=== PATIENT | male | born 1970 | race Caucasian/White ===

== ENCOUNTER 2019-09-19 11:30 | Emergency (ER) | payer OTHER, SELFPAY ==
[2019-09-19 11:38] VITALS: BP 131/88; PULSE 92; RESP 16; TEMP 36.6; O2SAT 97
--- NOTE | 2019-09-19 12:24 | ED.EYEPROB ---
HPI - Eye Problem General Chief complaint: Eye Problems Stated complaint: eye irritation Time Seen by Provider: 09/19/19 12:24 Source: patient and RN notes reviewed Mode of arrival: ambulatory Limitations: no limitations History of Present Illness HPI Narrative: 49-year-old male presents with concern for right eye irritation, watery drainage, redness. Reports symptoms started this morning. Reports 2-day history of rhinorrhea, nasal congestion. Denies wearing contact lenses. Denies any injury or foreign body of the eye. Denies eye pain, denies vision changes, denies photophobia chief complaint: eye redness (Eye irritation) Related Data Allergies Allergy/AdvReac Type Severity Reaction Status Date / Time amoxicillin Allergy Unknown lightheadedness, Verified 07/25/17 21:20 dizziness. No Known Allergies Allergy Unverified 10/02/16 20:40 Review of Systems Review of Systems: Narrative: CONSTITUTIONAL: Denies malaise, chills, sweats, or fever. EYES: Denies visual changes, eye pain, photophobia. Reports right eye redness, irritation, watery discharge. ENT: Reports rhinorrhea, congestion. Denies sinus pain, otalgia or sore throat. CARDIOVASCULAR: Denies chest pain, palpitations, or edema. RESPIRATORY: Denies cough or dyspnea. SKIN: Denies rash or itching. NEUROLOGIC: Denies headache. All systems reviewed & are unremarkable except as noted in HPI and below PMFSH Social History Social History Smoking status: Never smoker Alcohol intake: current Comments At time of signature, agree with nursing past medical, surgical, social and family history. There is no relevant family history pertinent to the presenting complaint Exam Narrative: Exam Narrative: GENERAL: Well-appearing, well-nourished, and in no acute distress. HEAD: Normocephalic, atraumatic EYES: PERRLA, left conjunctivae clear, EOMI. Right conjunctive and sclera mildly injected with cloudy discharge ENT: Nares clear, turbinates erythematous, clear discharge. Mucous membranes moist. TM pearly gomez with sharp light reflex bilaterally; no tragal tenderness. Oropharynx not erythematous without lesions. Tonsils not enlarged and without exudate, no drooling, no hoarseness, no trismus. NECK: Supple. No lymphadenopathy CHEST: . No respiratory distress, speaks in full sentences. HEART: Regular rate and rhythm. SKIN: Warm, dry, no rash. NEURO: Alert and oriented x3. PSYCH: Normal mood and affect Course Course Emergency Course: Patient is aware of diagnosis, understands and agrees to treatment plan. Anticipatory guidance given. Patient agrees to follow-up as directed and is aware of reasons to seek care at the emergency department. Portions of this record may have been created with voice recognition software Vital Signs Vital signs: Vital Signs Temperature 97.8 F 09/19/19 11:38 Pulse Rate 92 09/19/19 11:38 Respiratory Rate 16 09/19/19 11:38 Blood Pressure 131/88 09/19/19 11:38 Pulse Oximetry 97 09/19/19 11:38 Temperature 97.8 F 09/19/19 11:38 Pulse Rate 92 09/19/19 11:38 Respiratory Rate 16 09/19/19 11:38 Blood Pressure 131/88 09/19/19 11:38 Pulse Oximetry 97 09/19/19 11:38 Reviewed. Patient has current diagnosis of hypertension MDM - Eye Problem MDM Narrative Medical decision making narrative: Consideration of the following conditions may be warranted for the presenting problem, they are not final diagnoses: Bacterial conjunctivitis, allergic conjunctivitis, viral conjunctivitis, foreign body, blepharitis, chalazion, hordeolum, corneal abrasion. Exam findings show no acute concerns or changes; patient is non-toxic appearing and is in no distress. Patient is appropriate for outpatient treatment and follow-up. Critical Care Time Critical Care Time Critical Care Time: No Discharge Plan Discharge Clinical Impression: Conjunctivitis Qualifiers: Conjunctivitis type: acute Acute conjunctivitis type: unspecified [place]
== END 2019-09-19 12:38 | disposition home or self-care (01) ==
PROVIDERS: Emergency Provider Nurse Practitioner; PCP Family Medicine
DX: H10.31 Unspecified acute conjunctivitis, right eye (principal); Z85.850 Personal history of malignant neoplasm of thyroid
CPT/HCPCS: 99213; G0463

== ENCOUNTER → 2020-12-26 02:05 | Outpatient (CLI) | payer OTHER, SELFPAY ==
[2020-12-26 23:32] LABS: SARS-CoV-2 RNA PCR Negative
== END ==
PROVIDERS: PCP Family Medicine; Visit Provider Internal Medicine Gastroenterology
DX: Z01.812 Encounter for preprocedural laboratory examination (principal); Z20.822 Contact with and (suspected) exposure to COVID-19
CPT/HCPCS: C9803; U0003; U0005

== ENCOUNTER 2020-12-29 01:50 | Day surgery (SDC) | payer OTHER, SELFPAY ==
[2020-12-20 13:46] VITALS: BMI 26.9
[2020-12-29 06:32] VITALS: BP 124/90; PULSE 90; RESP 16; TEMP 36.4; O2SAT 95; BMI 25.5
[2020-12-29] MEDS: LACTATED RINGERS 1,000 ML 150 ML IV CONT (06:47)
--- NOTE | 2020-12-29 07:17 | WPDANESEPPF ---
Anes - Initial Pre Proc Eval Procedure: Operation Date: 12/29/20 07:30 Proposed Procedures p Screening Colonoscopy - Musa Sams MD Date/Time: 12/29/20 07:17 Surgeon: Musa Sams MD Pre Op Diagnosis: Neoplasm Screening, Family Hx Of Colon CA Patient Data Age: 50 Gender: M Height: 6 ft Weight: 85.4 kg Last Vital Signs Temp 97.6 F 12/29/20 06:32 Pulse 90 12/29/20 06:32 Resp 16 12/29/20 06:32 BP 124/90 12/29/20 06:32 Pulse Ox 95 12/29/20 06:32 Allergies Allergy/AdvReac Type Severity Reaction Status Date / Time No Known Allergies Allergy Verified 12/29/20 06:30 Home Medications Medication Instructions Recorded Confirmed Type cholecalciferol (vitamin D3) 50 50 mcg PO DAILY 08/23/20 12/29/20 History mcg (2,000 unit) capsule doxycycline hyclate 20 mg tablet 20 mg PO DAILY tablet 08/23/20 12/20/20 History levothyroxine 175 mcg tablet 175 mcg PO DAILY #90 tablet 08/23/20 12/29/20 Rx montelukast [Singulair] 10 mg PO DAILY 12/20/20 12/29/20 History Patient hx anesthesia problems: none Family hx anesthesia problems: none PMFSH Past Medical History Medical History (Updated 08/23/20 @ 14:22 by Laith Saeed MD) Elevated blood pressure reading Family hx of colon cancer Hypoparathyroidism after procedure Malignant neoplasm of thyroid gland Obesity (BMI 30.0-34.9) Prediabetes Vitamin D imbalance Social History Social History Smoking status: Never smoker Alcohol intake: current Substance use: current Substance use type: does not use Living arrangements: with family Gender identity (if verbalized by the patient): Male Sexual Orientation (if Verbalized by the Patient): Straight or Heterosexual Spiritual care concerns: No Anes - Eval Final PreProcedure Day of Procedure 12/29/20 07:17 Patient weight: normal Heart: regular rate and rhythm Lungs: clear to auscultation Airway: Mallampati scale class II Neurological: alert and oriented Last oral intake: >/= 8 hours ASA classification: II Emergent: no Anesthetic plan: proceed Anesthesia type and monitoring: general GIVS and standard monitoring Informed Consent: The patient's anesthetic plan and its attendant risks and benefits were discussed with the patient/family/POA. Questions were solicited and answers provided to the satisfaction of the patient/family/POA.
--- NOTE | 2020-12-29 07:30 | PM.HPGS ---
History of Present Illness History of Present Illness Consent: Risks, benefits, and alternatives have been discussed and questions answered. Patient agrees to proceed with procedure. Chief complaint: Neoplasm Screening, Family Hx Of Colon CA Narrative: Bert Lucas is a 50 year old male with colon polyps 5 years ago Review of Systems Constitutional: Constitutional: Denies headache(s) and Denies weakness Eyes: Eyes: Denies blurry vision ENT: Reports Normal hearing present, Denies headache(s) and Denies neck pain Cardiovascular: Cardiovascular: Denies chest pain and Denies dyspnea Respiratory: Respiratory: Denies dyspnea Gastrointestinal: Gastrointestinal: Reports no additional gastrointestinal complaints Genitourinary: Genitourinary: Denies dysuria Musculoskeletal: Musculoskeletal: Denies neck pain Integumentary/Breasts: Skin/Breast: Denies dry skin Neurologic: Reports Normal hearing present, Denies headache(s) and Denies weakness Psychiatric: Psychiatric: Denies anxiety Endocrine: Endocrine: Denies change in body appearance Hematologic/Lymphatic: Hematologic/Lymphatic: Denies easy bleeding Allergic/Immunologic: Allergic/Immunologic: Denies urticaria PMFSH Past Medical History Medical History (Updated 12/29/20 @ 07:30 by Musa Sams MD) Colon polyp Elevated blood pressure reading Family hx of colon cancer Hypoparathyroidism after procedure Malignant neoplasm of thyroid gland Obesity (BMI 30.0-34.9) Prediabetes Vitamin D imbalance Social History Social History Smoking status: Never smoker Alcohol intake: current Substance use: current Substance use type: does not use Living arrangements: with family Gender identity (if verbalized by the patient): Male Sexual Orientation (if Verbalized by the Patient): Straight or Heterosexual Spiritual care concerns: No Meds Home Medications and Allergies Home Medications Medication Instructions Recorded Confirmed Type cholecalciferol (vitamin D3) 50 50 mcg PO DAILY 08/23/20 12/29/20 History mcg (2,000 unit) capsule doxycycline hyclate 20 mg tablet 20 mg PO DAILY tablet 08/23/20 12/20/20 History levothyroxine 175 mcg tablet 175 mcg PO DAILY #90 tablet 08/23/20 12/29/20 Rx montelukast [Singulair] 10 mg PO DAILY 12/20/20 12/29/20 History Allergies Allergy/AdvReac Type Severity Reaction Status Date / Time No Known Allergies Allergy Verified 12/29/20 06:30 Vital Signs Vital Signs - 24 hr 12/29/20 06:32 Temperature 97.6 F Pulse Rate 90 Respiratory Rate 16 Blood Pressure 124/90 Pulse Oximetry 95 Exam Const: General: comfortable and no acute distress HENMT: General nose exam: Normal nares present Eyes: General: appearance normal, both eyes and all related structures Neck: Neck: no JVD Resp: Auscultation: clear to auscultation bilaterally Cardio: Rate: regular rate Rhythm: regular rhythm GI: Inspection: non-distended GI Palp: Yes Soft to palpation Skin: General skin exam: normal color Neuro: General: gait normal Speech: normal speech Extrem: General: normal to inspection Psych: Mental Status: mental status grossly normal Assessment and Plan Assessment and plan (1) Family hx of colon cancer: Code(s): Z80.0 - Family history of malignant neoplasm of digestive organs Status: Acute (2) Colon polyp: Code(s): K63.5 - Polyp of colon Status: Acute Assessment and Plan: colonoscopy
[2020-12-29 07:52] VITALS: BP 103/72; PULSE 82; RESP 17; O2SAT 98
[2020-12-29 08:02] VITALS: BP 103/80; PULSE 81; RESP 17; O2SAT 98
[2020-12-29 08:12] VITALS: BP 120/84; PULSE 71; RESP 17; O2SAT 98
== END 2020-12-29 08:25 | disposition home or self-care (01) ==
PROVIDERS: PCP Family Medicine; Visit Provider Internal Medicine Gastroenterology
PROC: 0DJD8ZZ Inspection of Lower Intestinal Tract, Via Natural or Artificial Opening Endoscopic (ICD-10-PCS; CPT 45378; principal; 2020-12-29 07:30)
DX: Z12.11 Encounter for screening for malignant neoplasm of colon (principal); Z86.010 Personal history of colon polyps; K57.30 Diverticulosis of large intestine without perforation or abscess without bleeding; K64.8 Other hemorrhoids; Z85.850 Personal history of malignant neoplasm of thyroid; E89.0 Postprocedural hypothyroidism; R73.03 Prediabetes
CPT/HCPCS: 45378; C9803; J7120; U0003; U0005

== ENCOUNTER → 2021-03-17 01:04 | Outpatient (CLI) | payer OTHER, SELFPAY ==
[2021-03-17 22:45] LABS: SARS-CoV-2 RNA PCR Negative
== END ==
PROVIDERS: PCP Family Medicine; Visit Provider Physician Assistant Medical
DX: Z20.822 Contact with and (suspected) exposure to COVID-19 (principal)
CPT/HCPCS: C9803; U0003; U0005

== ENCOUNTER → 2022-02-01 07:40 | Outpatient (CLI) | payer OTHER, SELFPAY ==
--- NOTE | ~2022-02-01 | XR_ITS ---
EXAMINATION: XR hand LT min 3V DATE: 02/01/2022 08:07 INDICATION: Benign neoplasm of bone and articular cartilage. Chronic soft tissue lump with intermitte nt pain at the dorsal aspect of the carpus. TECHNIQUE: Posteroanterior, oblique and lateral views of the left hand were obtained. A BB dorsey the lesion of concern on the lateral projection. COMPARISON: 10/02/2016 FINDINGS: Prominent carpal bossing with large dorsal osteophytes at the third carpometacarpal joint which are l ikely underlies the marker indicating the lesion of concern. Bone alignment is normal. No fracture. J oint spaces are relatively preserved. Small cortical ossicle near the tip of the ulnar styloid proces s could be either degenerative or sequela of old trauma. IMPRESSION: 1. Carpal bossing with prominent dorsal osteophytes at the third carpometacarpal joint which likely a ccount for the palpable abnormality of concern. Reviewed, dictated and finalized at location B. IMPRESSION: 1. Carpal bossing with prominent dorsal osteophytes at the third carpometacarpa l joint which likely account for the palpable abnormality of concern.
== END ==
PROVIDERS: PCP Family Medicine; Visit Provider Family Medicine
DX: D16.9 Benign neoplasm of bone and articular cartilage, unspecified (principal)
CPT/HCPCS: 73130

== ENCOUNTER 2022-09-16 13:05 | Emergency (ER) | payer OTHER, SELFPAY ==
[2022-09-16 13:27] VITALS: BP 132/83; PULSE 95; RESP 16; TEMP 36.4; O2SAT 99
--- NOTE | 2022-09-16 13:34 | ED.URI ---
HPI - URI/Sore Throat General Chief Complaint: Upper Respiratory Infection Stated Complaint: fever, congestion Time Seen by Provider: 09/16/22 13:49 Source: patient and RN notes reviewed Mode of arrival: ambulatory Limitations: no limitations History of Present Illness HPI Narrative: 52-year-old male presents concern for cough, chest congestion. Reports symptoms started on night and Friday with fever, nasal congestion, rhinorrhea and in progressed into a cough he took 2- COVID test at home. MD elicited complaint: cough Related Data Home Medications Medication Instructions Recorded Confirmed cholecalciferol (vitamin D3) 50 50 mcg PO DAILY 08/23/20 08/13/22 mcg (2,000 unit) capsule calcium carbonate 300 mg (750 mg) 300 mg PO BID 05/04/21 08/13/22 chewable tablet (Antacid Extra Strength (calcium carb)) levothyroxine 200 mcg tablet 200 mcg PO DAILY 08/13/22 08/13/22 (Synthroid) Allergies Allergy/AdvReac Type Severity Reaction Status Date / Time No Known Allergies Allergy Verified 09/16/22 13:29 Review of Systems Review of Systems: CONSTITUTIONAL: Denies malaise, chills, sweats. Reports fever. EYES: Denies visual changes, redness, or discharge. ENT: Reports rhinorrhea, congestion. Denies sinus pain, otalgia and sore throat. CARDIOVASCULAR: Denies chest pain, palpitations, or edema. RESPIRATORY: Reports cough. Denies dyspnea. GASTROINTESTINAL: Denies abdominal pain, nausea, vomiting, diarrhea SKIN: Denies rash or itching. MUSCULOSKELETAL: Denies myalgia. NEUROLOGIC: Denies headache. 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 Malignant neoplasm of thyroid gland Obesity (BMI 30.0-34.9) Prediabetes Vitamin D imbalance Social History Social History (Updated 08/13/22 @ 15:52 by Adrian Pimentel MA) Smoking status: Never smoker Alcohol intake: current Substance use: current Substance use type: does not use Lack of Transportation: No Lack of Food: Never True Concerned About Future Housing: No Difficulty Paying Gas/Electric Bills: No Difficulty Paying for Meds: No Currently Unemployed: No Education: Master's Degree or Higher Difficulty w/ Childcare or Family Care: No Living arrangements: with family Gender identity (if verbalized by the patient): Male Sexual Orientation (if Verbalized by the Patient): Straight or Heterosexual Spiritual care concerns: No Comments At time of signature, agree with nursing past medical, surgical, social and family history. There is no relevant family history pertinent to the presenting complaint Exam Narrative: GENERAL: Well-appearing, well-nourished, and in no acute distress. HEAD: Normocephalic EYES: PERRLA, conjunctivae clear ENT: Nares clear, turbinates edematous and erythematous, clear discharge. Mucous membranes moist. TM pearly gomez with dull light reflex bilaterally; no tragal tenderness. Oropharynx not erythematous without lesions. Tonsils not enlarged and without exudate, no drooling, no hoarseness, no trismus, uvula midline. NECK: Supple. No lymphadenopathy CHEST: Clear to auscultation, breath sounds equal. No wheezing, rhonchi, rales, or stridor. No respiratory distress, speaks in full sentences. Cough noted HEART: Regular rate and rhythm. No murmur heard. SKIN: Warm, dry, no rash. NEURO: Alert and oriented x3. PSYCH: Normal mood and affect Course Course Emergency Course: Patient is aware of diagnosis, understands and agrees to treatment plan. Anticipatory guidance given. Patient agrees to follow-up as directed and is aware of reasons to seek care at the emergency department. Portions of this record may have been created with voice recognition software Level of Care: Express Car
== END 2022-09-16 14:02 | disposition home or self-care (01) ==
PROVIDERS: Emergency Provider Nurse Practitioner; PCP Family Medicine
DX: J40 Bronchitis, not specified as acute or chronic (principal); Z85.850 Personal history of malignant neoplasm of thyroid
CPT/HCPCS: 99213; G0463

== ENCOUNTER 2023-09-01 11:13 | Emergency (ER) | payer OTHER, SELFPAY ==
[2023-09-01 11:22] VITALS: BP 146/99; PULSE 89; RESP 20; TEMP 36.6; O2SAT 98
[2023-09-01 11:28] VITALS: BP 146/99; PULSE 89; RESP 20; TEMP 36.6; O2SAT 98
--- NOTE | 2023-09-01 11:47 | ED.URI ---
HPI - URI/Sore Throat General Chief Complaint: Upper Respiratory Infection Stated Complaint: Congestion;Cough Time Seen by Provider: 09/01/23 11:30 Source: patient Mode of arrival: ambulatory Limitations: no limitations History of Present Illness HPI Narrative: Bert is a 52 year old male patient presenting to the clinic today with complaints of cough and congestion x5 days. He denies any known fever. Did at home COVID test and it was negative at home. Denies any chest pain or shortness of breath. No known exposure to anyone with COVID, flu, or strep. MD elicited complaint: cough, rhinorrhea and nasal congestion Related Data Home Medications Medication Instructions Recorded Confirmed cholecalciferol (vitamin D3) 50 50 mcg PO DAILY 08/23/20 09/01/23 mcg (2,000 unit) capsule calcium carbonate 300 mg (750 mg) 300 mg PO BID 05/04/21 09/01/23 chewable tablet (Antacid Extra Strength (calcium carb)) levothyroxine 200 mcg tablet 200 mcg PO DAILY 08/13/22 09/01/23 (Synthroid) Allergies Allergy/AdvReac Type Severity Reaction Status Date / Time No Known Allergies Allergy Verified 09/01/23 11:27 Review of Systems Review of Systems: Pertinent positives per HPI. Patient denies any fever, chills, rash, headache, visual changes, dizziness, shortness of breath, chest pain, palpitations, nausea, vomiting, diarrhea, constipation, abdominal pain, or any urinary issues. 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 Malignant neoplasm of thyroid gland Obesity (BMI 30.0-34.9) Prediabetes Vitamin D imbalance Social History Social History Smoking status: Never smoker Alcohol intake: current Substance use: current Substance use type: does not use Lack of Transportation: No Lack of Food: Never True Concerned About Future Housing: No Difficulty Paying Gas/Electric Bills: No Difficulty Paying for Meds: No Currently Unemployed: No Education: Master's Degree or Higher Difficulty w/ Childcare or Family Care: No Living arrangements: with family Gender identity (if verbalized by the patient): Male Sexual Orientation (if Verbalized by the Patient): Straight or Heterosexual Spiritual care concerns: No Comments At the time of my signature, I reviewed and agree with the nursing past medical, surgical, social, and family history. There is no relevant family history pertinent to the patient complaint. Exam Narrative: General: Well-developed, well nourished, in no apparent distress Head: Normocephalic, atraumatic Eyes: Pupils equally round and reactive to light bilaterally, EOM intact, sclera and conjunctive clear, no discharge, lids normal Ears: TMs intact and congested, ear canals clear, no drainage, grossly hearing normal. Nose: Nares patent, clear nasal discharge, no inflammation, no sinus tenderness. Mouth: Oral pharynx without lesions or masses, good dentition, MMM. Neck: Supple, trachea midline, no enlargement of anterior or posterior cervical nodes, no thyroid masses or goiter palpable. Cardio: Regular rate and rhythm, s1 and s2 normal, no murmur appreciated. Resp: Clear to auscultation bilaterally, no rhonchi, rales, wheezing or rubs Course Course Emergency Course: Portions of this record may have been created with voice recognition software. Level of Care: Express Care Visit Vital Signs Vital signs: Vital Signs Temperature 36.6 C 09/01/23 11:22 Pulse Rate 89 09/01/23 11:22 Respiratory Rate 20 09/01/23 11:22 Blood Pressure 146/99 H 09/01/23 11:22 Pulse Oximetry 98 09/01/23 11:22 Oxygen Delivery Room Air 09/01/23 11:22 Temperature 36.6 C 09/01/23 11:28 Pulse Rate 89 09/01/23 11:28 Respiratory Rate 20 09/01/23
== END 2023-09-01 12:07 | disposition home or self-care (01) ==
PROVIDERS: Emergency Provider Nurse Practitioner Family; PCP Family Medicine
DX: J06.9 Acute upper respiratory infection, unspecified (principal); Z85.850 Personal history of malignant neoplasm of thyroid
CPT/HCPCS: 99211; G0463

== ENCOUNTER 2023-11-23 18:41 | Emergency (ER) | payer OTHER, SELFPAY ==
--- NOTE | 2023-11-23 18:53 | ED.EYEPROB ---
HPI - Eye Problem General Chief complaint: Eye Problems Stated complaint: R EYE INJURY Time Seen by Provider: 11/23/23 18:58 Source: patient and RN notes reviewed Mode of arrival: ambulatory Limitations: no limitations History of Present Illness HPI Narrative: 53-year-old male presents with concern for redness and irritation to the playing pickle ball today. He reports occasional blurry vision. He reports symptoms have improved slightly since he injured the eye. MD chief complaint: eye redness Related Data Home Medications Medication Instructions Recorded Confirmed cholecalciferol (vitamin D3) 50 50 mcg PO DAILY 08/23/20 11/23/23 mcg (2,000 unit) capsule calcium carbonate (Antacid Ext Str 300 mg PO BID 05/04/21 11/23/23 (calcium carb)) levothyroxine 200 mcg tablet 200 mcg PO DAILY 08/13/22 11/23/23 (Synthroid) Allergies Allergy/AdvReac Type Severity Reaction Status Date / Time No Known Allergies Allergy Verified 11/23/23 18:48 Review of Systems Review of Systems: CONSTITUTIONAL: Denies malaise, chills, sweats, or fever. EYES: Reports intermittent blurry vision. Reports right eye redness, irritation ENT: Denies rhinorrhea, congestion, sinus pain, otalgia or sore throat. SKIN: Denies rash or itching. NEUROLOGIC: Denies numbness, weakness, or headache. PSYCHIATRIC: Denies anxiety or depression. 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 Malignant neoplasm of thyroid gland Obesity (BMI 30.0-34.9) Prediabetes Vitamin D imbalance Social History Social History Smoking status: Never smoker Alcohol intake: current Substance use: current Substance use type: does not use Lack of Transportation: No Lack of Food: Never True Concerned About Future Housing: No Difficulty Paying Gas/Electric Bills: No Difficulty Paying for Meds: No Currently Unemployed: No Education: Master's Degree or Higher Difficulty w/ Childcare or Family Care: No Living arrangements: with family Gender identity (if verbalized by the patient): Male Sexual Orientation (if Verbalized by the Patient): Straight or Heterosexual Spiritual care concerns: No Comments At time of signature, agree with nursing past medical, surgical, social and family history. There is no relevant family history pertinent to the presenting complaint Exam Narrative: GENERAL: Well-appearing, well-nourished, and in no acute distress. HEAD: Normocephalic, atraumatic. EYES: PERRLA, sclera clear, and EOMI. No nystagmus. Right sclera injected with corneal abrasion noted upon Wood's lamp exam, see note. Upper and lower eyelid unremarkable, no periorbital edema noted ENT: Nares clear, turbinates pink, no rhinorrhea or epistaxis. Mucous membranes moist. TM pearly gomez with sharp light reflex bilaterally; no tragal tenderness. NECK: Supple. CHEST: No respiratory distress. Speaks in full sentences. HEART: Regular rate and rhythm. SKIN: Warm, dry, no visible rash. NEURO: Alert and oriented x3. PSYCH: Normal mood and affect Course Course Emergency Course: Patient is aware of diagnosis, understands and agrees to treatment plan. Anticipatory guidance given. Patient agrees to follow-up as directed and is aware of reasons to seek care at the emergency department. Portions of this record may have been created with voice recognition software Level of Care: Express Care Visit Vital Signs Vital signs: Reviewed. Procedures Other Procedure Procedure 1: Other Procedure: Tetracaine 1 gtt instilled in right eye, fluorescein stain applied. Corneal abrasion noted upon light lamp exam at approximately 9 o'clock in relation to the pupil.
[2023-11-23 18:55] VITALS: BP 185/111; PULSE 89; RESP 16; TEMP 36.5; O2SAT 99
== END 2023-11-23 19:12 | disposition home or self-care (01) ==
PROVIDERS: Emergency Provider Nurse Practitioner; PCP Family Medicine
DX: S05.01XA Injury of conjunctiva and corneal abrasion without foreign body, right eye, initial encounter (principal); X58.XXXA Exposure to other specified factors, initial encounter; Y93.69 Activity, other involving other sports and athletics played as a team or group; R73.03 Prediabetes; E66.9 Obesity, unspecified; Z68.27 Body mass index [BMI] 27.0-27.9, adult; Z85.850 Personal history of malignant neoplasm of thyroid
CPT/HCPCS: 99213; A9270; G0463

== ENCOUNTER 2023-12-25 19:10 | Emergency (ER) | payer OTHER, SELFPAY ==
[2023-12-25 19:27] VITALS: BP 175/113; PULSE 84; RESP 16; TEMP 36.8; O2SAT 100
--- NOTE | 2023-12-25 19:38 | ED.GENADULT ---
HPI - General Adult General Chief complaint: Upper Respiratory Infection Stated complaint: SWOLLEN LIP Time Seen by Provider: 12/25/23 19:39 Source: patient, RN notes reviewed and old records reviewed Mode of arrival: ambulatory Limitations: no limitations History of Present Illness HPI narrative: 53-year-old male presents to the [facility] with a swollen lip. States that he was sitting on his back porch when his lip ?just swelled . Denies any new foods. Not on lisinopril. Unsure if a ?sweat be stung me. ? No treatment prior to arrival Onset (ago): minute(s) Related Data Home Medications Medication Instructions Recorded Confirmed cholecalciferol (vitamin D3) 50 50 mcg PO DAILY 08/23/20 12/25/23 mcg (2,000 unit) capsule calcium carbonate (Antacid Ext Str 300 mg PO BID 05/04/21 12/25/23 (calcium carb)) levothyroxine 200 mcg tablet 200 mcg PO DAILY 08/13/22 12/25/23 (Synthroid) Allergies Allergy/AdvReac Type Severity Reaction Status Date / Time No Known Allergies Allergy Verified 12/25/23 19:22 Review of Systems Review of Systems: All systems reviewed & are unremarkable except as noted in HPI and below Constitutional: Constitutional: Reports no additional constitutional complaints Eyes: Eyes: Reports no additional eye complaints ENT: Reports as per HPI and Reports lip swelling Cardiovascular: Cardiovascular: Reports no additional cardiovascular complaints, Denies chest pain and Denies dyspnea Respiratory: Respiratory: Reports no additional respiratory complaints, Denies chest congestion, Denies cough and Denies dyspnea Gastrointestinal: Gastrointestinal: Reports no additional gastrointestinal complaints, Denies abdominal pain, Denies nausea and Denies vomiting Musculoskeletal: Musculoskeletal: Reports no additional musculoskeletal complaints Integumentary/Breasts: Skin/Breast: Reports system reviewed and no additional complaints, except as docu Neurologic: Reports system reviewed and no additional complaints, except as documented Psychiatric: Psychiatric: Reports no additional psychiatric complaints Allergic/Immunologic: Allergic/Immunologic: Reports no additional allergic/immunologic complaints PMFSH Past Medical History Medical History Colon polyp Elevated blood pressure reading Family hx of colon cancer Hypoparathyroidism after procedure Malignant neoplasm of thyroid gland Obesity (BMI 30.0-34.9) Prediabetes Vitamin D imbalance Social History Social History Smoking status: Never smoker Alcohol intake: current Substance use: current Substance use type: does not use Lack of Transportation: No Lack of Food: Never True Concerned About Future Housing: No Difficulty Paying Gas/Electric Bills: No Difficulty Paying for Meds: No Currently Unemployed: No Education: Master's Degree or Higher Difficulty w/ Childcare or Family Care: No Living arrangements: with family Gender identity (if verbalized by the patient): Male Sexual Orientation (if Verbalized by the Patient): Straight or Heterosexual Spiritual care concerns: No Comments At the time of my signature, I reviewed and agree with the nursing past medical, surgical, social, and family history. There is no relevant family history pertinent to the patient complaint. Exam Const: General: cooperative, healthy appearing, comfortable, no acute distress, well developed, alert and well nourished Nutritional Appearance: well nourished Orientation/consciousness: patient oriented x3 Limitations: no limitations HENMT: Head: normal to inspection Ears: hearing grossly normal bilaterally, external ears normal, TM's normal bilaterally, EAC's normal, mastoids normal and no periauricular adenopathy Face/Nose/Sinus: Normal external nose present, Normal nares present, Normal nasal mucous membranes and turbinates prese
[2023-12-25] MEDS: predniSONE 20 MG TABLET 40 MG PO (19:51)
== END 2023-12-25 20:05 | disposition home or self-care (01) ==
PROVIDERS: Emergency Provider Nurse Practitioner; PCP Family Medicine
DX: R22.0 Localized swelling, mass and lump, head (principal); E89.2 Postprocedural hypoparathyroidism; E66.9 Obesity, unspecified; Z68.27 Body mass index [BMI] 27.0-27.9, adult; R73.03 Prediabetes; Z85.850 Personal history of malignant neoplasm of thyroid
CPT/HCPCS: 99213; G0463; J7512

== ENCOUNTER 2024-01-12 08:56 | Emergency (ER) | payer OTHER, SELFPAY ==
[2024-01-12 09:00] VITALS: BP 169/112; PULSE 77; RESP 18; TEMP 36.5; O2SAT 99
--- NOTE | 2024-01-12 09:26 | ED.EYEPROB ---
HPI - Eye Problem General Chief complaint: Eye Problems Stated complaint: R EYE BURNING Source: patient, RN notes reviewed and old records reviewed Mode of arrival: ambulatory Limitations: no limitations History of Present Illness HPI Narrative: Patient presents with complaints of itching and drainage from right eye, moving into the left eye. He reports that symptoms began yesterday. He denies any injury, foreign body. He does state that the right eye was matted shut this morning. 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 Related Data Home Medications Medication Instructions Recorded Confirmed cholecalciferol (vitamin D3) 50 50 mcg PO DAILY 08/23/20 01/12/24 mcg (2,000 unit) capsule calcium carbonate (Antacid Ext Str 300 mg PO BID 05/04/21 01/12/24 (calcium carb)) levothyroxine 200 mcg tablet 200 mcg PO DAILY 08/13/22 01/12/24 (Synthroid) Allergies Allergy/AdvReac Type Severity Reaction Status Date / Time No Known Allergies Allergy Verified 01/12/24 09:04 Review of Systems Review of Systems: All systems reviewed & are unremarkable except as noted in HPI and below Constitutional: Constitutional: Reports no additional constitutional complaints Eyes: Eyes: Denies change in vision, Reports irritation, Reports itchy eyes and Denies photophobia ENT: Reports system reviewed and no additional complaints, except as documented Cardiovascular: Cardiovascular: Reports no additional cardiovascular complaints Respiratory: Respiratory: Reports no additional respiratory complaints Gastrointestinal: Gastrointestinal: Reports no additional gastrointestinal complaints [facility] Past Medical History Medical History Colon polyp Elevated blood pressure reading Family hx of colon cancer Hypoparathyroidism after procedure Malignant neoplasm of thyroid gland Obesity (BMI 30.0-34.9) Prediabetes Vitamin D imbalance Social History Social History Smoking status: Never smoker Alcohol intake: current Substance use: current Substance use type: does not use Lack of Transportation: No Lack of Food: Never True Concerned About Future Housing: No Difficulty Paying Gas/Electric Bills: No Difficulty Paying for Meds: No Currently Unemployed: No Education: Master's Degree or Higher Difficulty w/ Childcare or Family Care: No Living arrangements: with family Gender identity (if verbalized by the patient): Male Sexual Orientation (if Verbalized by the Patient): Straight or Heterosexual Spiritual care concerns: No Comments At the time of my signature, I reviewed and agree with the nursing past medical, surgical, social, and family history. There is no relevant family history pertinent to the patient complaint. Exam Const: General: cooperative, no acute distress, alert and awake Orientation/consciousness: oriented to person, oriented to place and oriented to time HENMT: Head: normal to inspection Eyes: Conjunctivae: conjunctival abnormality right conjunctival injection diffuse and discharge mucoid Sclera: scleral abnormality right scleral injection; without foreign bodies and left scleral injection lateral; without foreign bodies Resp: Effort & Inspection: normal respiratory effort and able to speak in complete sentences Auscultation: clear to auscultation bilaterally, no crackles, no rales, no rhonchi and no wheezes Cardio: Palpation: normal PMI Rate: regular rate Rhythm: regular rhythm Heart sounds: S1 normal heart sound present and S2 normal heart sound present Neuro: General: oriented to person, oriented to place and oriented to time Cranial nerves: Yes CN's II-XII intact bilaterally Psych: Appearance: grossly normal Thought process: Normal thought process present Insight: Good insight present (Psych) Judgement: Good judg
== END 2024-01-12 09:44 | disposition home or self-care (01) ==
PROVIDERS: Emergency Provider Nurse Practitioner Family; PCP Family Medicine
DX: H10.33 Unspecified acute conjunctivitis, bilateral (principal); E66.9 Obesity, unspecified; R73.03 Prediabetes; E89.2 Postprocedural hypoparathyroidism; Z85.850 Personal history of malignant neoplasm of thyroid
CPT/HCPCS: 99213; G0463

== ENCOUNTER 2024-02-18 11:06 | Outpatient (CLI) | payer OTHER, SELFPAY ==
[2024-02-18 13:28] LABS: Parathyroid Intact 41.5 pg/mL (7.5-53.5)
[2024-02-18 13:36] LABS: Alanine Aminotransferase 22 U/L (6-50); Albumin Level 4.4 g/dL (3.5-5.1); Alkaline Phosphatase 70 U/L (38-126); Anion Gap 9 mmol/L (4-12); Aspartate Amino Transferase 37 U/L (17-59); Bilirubin,Total 0.8 mg/dL (0.2-1.3); Blood Urea Nitrogen 21 mg/dL (9-20); Calcium 7.3 mg/dL (8.4-10.2); Carbon Dioxide 30 mmol/L (22-30); Chloride 101 mmol/L (98-107); Cholesterol 197 mg/dL (0-200); Estimated Glomerular Filt Rate > 60; Glucose 116 mg/dL (65-110); HDL Direct 32 mg/dL; Potassium 4.1 mmol/L (3.4-5.0); Sodium 140 mmol/L (137-145); Triglycerides 187 mg/dL (<150)
[2024-02-18 13:44] LABS: Hemoglobin A1C 6.5 % (<5.7)
[2024-02-18 13:58] LABS: LDL Cholesterol Direct 102 mg/dL
[2024-02-18 14:38] LABS: Vitamin D 25 Hydroxy 48.7 ng/mL
== END 2024-02-18 11:07 | disposition home or self-care (01) ==
LOC: ANHGOSHLAB 11:08
PROVIDERS: PCP Family Medicine; Visit Provider Family Medicine
DX: E78.5 Hyperlipidemia, unspecified (principal); C73 Malignant neoplasm of thyroid gland; E83.51 Hypocalcemia; R73.03 Prediabetes; E89.2 Postprocedural hypoparathyroidism
CPT/HCPCS: 36415; 80053; 80061; 82306; 83036; 83970; 84443

== ENCOUNTER 2024-08-26 15:36 | Outpatient (CLI) | payer OTHER, SELFPAY ==
--- OUTSIDE RECORDS SUMMARY | 2024-08-26 15:40 | XMS_ITS | Encounter Summary ---
Author Organization [facility] Address [address] [place] [address] Phone Care Team Providers Care Food Service Director Name Role Phone Laith Saeed MD Primary Care Provider [phone] Encounter Details Date Type Department Care Team (Late st Contact Info) Description 08/23/2024 Telephone [facility] Cardiology [address] [facility] [place] [facility] 8th [place] [address] [place] [address] Laury Meier Social History Tobacco Use Types Packs/Day Years Used Date Smoking Tobacco: Never Smokeless Tobacco: Never Sex and Gender Information Value Date Recorded Sex Assigned at Not on file Legal Sex 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 [x] [] If 'Yes', Schedulefirst available with Cardio-Oncology If yes where were you treated? [address] [facility] Have you ever seen a Trial Examiner in an office setting? [] [x] IF SCHEDULING PATIENT WITH MATERNAL Have you had a baby in the last year or are you ? (If yes send to Dr. Camp for review) [] [] Have you had heart or blood pressure problems during a previous ? (If yes send to Dr. Camp for review) [] [] Dr. Hilaria Garcia Patients only: Are you a hemodialysis or peritoneal dialysis patient? (If yes then patient must be referred from another MD, DO NOT SCHEDULE) [] [] Do you regularly exercise, or play any competitive or recreational sports? (If yes proceed to next question) [x] [] Are your symptoms or concerns associated with this exercise or activity? (If yes schedule in [facility]) [] [x] Patient History Questions Yes No Where/When/Notes Have you EVER been hospitalized for ANY cardiac issue? [] [x] Have you ever had any cardiac testing, imaging, or procedures? (Testing - echo, EKG, stress) (Imaging - Cardiac MRI, CT or calcium scoring) (Procedure - Ablation, Cardioversion, CABG, Cath) [] [x] Have you ever had a sleep study? [] [x] Do you have a device? If yes what type? (Pacemaker, Defibrillator, Implanted Loop Recorder) [] [x] If yes, where and when was device put in? Mail Room? ([employer], [employer], [place]) Appointment Date: 09/29/24 Provider: Nanci Location: [facility] [x] Confirm appt date, time, provider and location. [x] Advise pt to arrive 15- 20 min early. [x] Advise patient to bring medications/list, photo ID and insurance card [x] Advise of New PatientPacket being mailed to them. EKEEPER HEAD documented in this encounter Plan of Treatment Not on file documented as of this encounter Visit Diagnoses Not on filedocumented in this encounter Care Teams Food Service Director Relationship Specialty Start Date End Date Laith Saeed MD PCP - General 09/26/20 documented as of this encounter
--- OUTSIDE RECORDS SUMMARY | 2024-08-26 15:41 | XMS_ITS | Encounter Summary ---
Author Organization [facility] Address [address] [place] [address] Phone Care Team Providers Care Rice Farmworker Name Role Phone Laith Saeed MD Primary Care Provider [phone] Encounter Details Date Type Department Care Team (Late st Contact Info) Description 08/25/2024 Orders Only [facility] Endocrinology Metabolism and Lipid [address] [facility] 5[address] [place] [address] [place] [address] Aashish Bowden, RN Papillary carcinoma of thyroid (HCC) (Primary Dx); Hypothyroidism, adult Social History Tobacco Use Types Packs/Day Years Used Date Smoking Tobacco: Never Smokeless Tobacco: Never Sex and Gender Information Value Date Recorded Sex Assigned at Not on file Legal Sex Male 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 Gender Identity Male 09/08/2018 3:13 PM WEB MARKETING STRATEGIST Sexual Orientation Not on file documented as of this encounter Plan of Treatment Scheduled Orders Name Type Priority Associated Diagnoses Orde r Schedule Comprehensive metabolic panel Lab Routine Papillary carcinoma of thyroid (CMS/HCC) (HCC) Hypothyroidism, adult Expected: 08/25/2024 (Approximate), Expires: 08/25/2025 CBC with auto differential Lab Routine Papillary carcinoma of thyroid (CMS/HCC) (HCC) Hypothyroidism, adult Expected: 08/25/2024 (Approximate), Expires: 08/25/2025 TSH Lab Routine Papillary carcinoma of thyroid (CMS/HCC) (HCC) Hypothyroidism, adult Expected: 08/25/2024 (Approximate), Expires: 08/25/2025 T4, free Lab Routine Papillary carcinoma of thyroid (CMS/HCC) (HCC) Hypothyroidism, adult Expected: 08/25/2024 (Approximate), Expires: 08/25/2025 Renin activity Lab Routine Papillary carcinoma of thyroid (CMS/HCC) (HCC) Hypothyroidism, adult Expected: 08/25/2024 (Approximate), Expires: 08/25/2025 Aldosterone Lab Routine Papillary carcinoma of thyroid (CMS/HCC) (HCC) Hypothyroidism, adult Expected: 08/25/2024 (Approximate), Expires: 08/25/2025 Thyroglobulin, Thyroglobulin Antibodies Lab Routine Papillary carcinoma of thyroid (CMS/HCC) (HCC) Hypothyroidism, adult Expected: 08/25/2024 (Approximate), Expires: 08/25/2025 documented as of this encounter Visit Diagnoses Diagnosis Papillary carcinoma of thyroid (HCC)- Primary Malignant neoplasm of thyroid gland Hypothyroidism, adult Other specified acquired hypothyroidism documented in this encounter Care Teams Rice Farmworker Relationship Specialty Start Date End Date Laith Saeed MD PCP - General 09/26/20 documented as of this encounter
--- OUTSIDE RECORDS SUMMARY | 2024-08-26 15:41 | XMS_ITS | Referral Summary ---
Author Organization [facility] Address [address] [place] [address] Care Team Providers Care Knitted Cloth Examiner Name Role Phone Laith Saeed MD Primary Care Provider [phone] Encounters Date Type Department Care Team Description 08/25/2024 Orders Only [facility] Endocrinology Metabolism and Lipid [address] [facility] 5th [place] [address] [place] [phone] Aashish Bowden RN Papillary carcinoma of thyroid (HCC) (Primary Dx); Hypothyroidism, adult 08/23/2024 Telephone [facility] Cardiology [address] [facility] 8th [place] [address] [place] [phone] Laury Meier 06/28/2024 8:30 AM STRUCTURAL IRONWORKER Office Visit [facility] Ophthalmology [address] [place] [address] Luca Quisep MD Laxity of eyelid (Primary Dx); Papillary conjunctivitis from Last 3 Months Allergies No known active allergies Medications calcium phosphate-vitamin D3 250 mg calcium- 500 unit tablet,chewable TAKE 2 TABLETs TWICE DAILY. 02/14/20 14 Active multivitamin tabletIndications:Vit schrader Deficiency Prevention daily. 09/15/19 08 Active montelukast (SINGULAIR) 10 mg tablet TAKE ONE TABLET BY MOUTH DAILY 03/23/20 10 Active benzonatate (TESSALON) 200 mg capsuleIndications:Up per respiratory infection, viral Take 1 capsule (200 mg total) by mouth 3 (three) times a day as needed for cough 30 capsule 06/30/20 21 Active Additional Information Patient not taking.Reported on 06/28/2024 metFORMIN XR (GLUCOPHAGE XR) 500 mg 24 hr tablet 09/10/19 23 Active calcitRIOL (ROCALTROL) 0.25 mcg capsuleIndications:Ot her hypoparathyroidism (HCC) TAKE 1 CAPSULE DAILY 90 capsule 3 12/19/19 24 Active levothyroxine (SYNTHROID) 200 mcg tabletIndications:Pap illary carcinoma of thyroid (HCC),Hypothyroidism, adult TAKE 1 TABLET DAILY (NEED TO MAKE APPOINTMENT FOR ADDITIONAL REFILLS) 90 tablet 3 02/04/20 24 Active lisinopriL (PRINIVIL,ZESTRIL) 10 mg tablet Take 1 tablet (10 mg total) by mouth daily 02/24/20 24 Active cetirizine (ZyrTEC) 10 mg tablet Take 1 tablet (10 mg total) by mouth daily Active mometasone (NASONEX) 50 mcg/actuation nasal sprayIndications:Nikko rgic Rhinitis Administer 1 spray into each nostril daily Active sodium chloride (OCEAN) 0.65 % nasal sprayIndications:Dry Nose,Nasal Congestion Administer 1 spray into each nostril as needed for rhinitis Active prednisoLONE acetate (PRED FORTE) 1 % ophthalmic suspensionIndications :Papillary conjunctivitis Administer 1 drop into the right eye 3 (three) times a day 5 mL 04/22/20 24 Active Additional Information Patient taking differently:1 drop right eye 3 times daily,Using as needed, Reported on 06/28/2024 Active Problems Problem Noted Date Diagnosed Date Papillary conjunctivitis 04/22/2024 Assessment & Plan (04/22/2024 3:29 PM CDT): Significant improvement since yesterday (pt bring pictures). For now will add Pred TID right eye (OD), but asymmetric papillary rxn and recurrent inflammation right eye (OD) > left eye (OS) atypical. Suspect possible allergic response intermittently. Pt will look into laundry detergent as possible factor. Will schedule interval f/u w oculoplastics. Asked pt to bring in previous photos of inflammation. Could consider CT scan if swelling recurs. Pseudophakia of both eyes 04/05/2024 Assessment & Plan (04/22/2024 3:29 PM CDT): Central, monitor Assessment & Plan (04/05/2024 11:48 AM CDT): +[facility]FI[facility] at [facility] vision -not fully assessed; excellent unaided acuities today -follow Laxity of eyelid 04/05/2024 Assessment & Plan (04/22/2024 3:29 PM CDT): Pt plans to discuss w PCP regarding sleep study. Pred TID right eye (OD) x 2 wk for now for papillary rxn Assessment & Plan (04/05/2024 11:48 AM CDT): -new pt same day add on for redness, burning, itching, watering OD x years -symptoms flare up and resolve on their own -no h/o facial rosacea or PARUL +snores +sleeps with ceiling fan +moderately lax lids today OU with papillary rxn on superior palp conj -recommend sleep study; will send letter to PCP today -rx prednisolone gtts qid OD x 2 weeks; side effects of parts counterman topical steroid use discussed today -start sleeping with eye mask -consider d/c ceiling fan use -RTC prn; sooner if symptoms worsen or persist Hypothyroidism, adult 04/17/2016 Papillary carcinoma of thyroid 02/11/2014 Hypoparathyroidism 10/26/2009 Social History Tobacco Use Types Packs/Day Years Used Date Smoking Tobacco: Never Smokeless Tobacco: Never Tobacco Cessation:Counseling Given: Not Answered Sex and Gender Information Value Date Recorded Sex Assigned at Not on file Legal Sex Male 3:09 AM STRUCTURAL IRONWORKER Gender Identity Male 09/08/2018 3:13 PM STRUCTURAL IRONWORKER Sexual Orientation Not on file Last Filed Vital Signs Vital Sign Reading Time Taken Comments Blood Pressure 145/88 02/27/2024 9:06 AM CDT 1st reading 156/110 Pulse 81 02/27/2024 9:06 AM CDT Temperature 37 C (98.6 F) 10/08/2022 2:46 PM CDT Respiratory Rate 16 07/29/2021 7:06 PM STRUCTURAL IRONWORKER Oxygen Saturation 97% 07/29/2021 7:0 6 PM STRUCTURAL IRONWORKER Inhaled Oxygen Concentration - - Weight 91.8 kg (202 lb 6.4 oz) 02/27/2024 9:06 AM CDT Height 182.9 cm (6') 10/08/2022 2:46 PM CDT Body Mass Index 27.45 10/08/2022 2:46 PM CDT Plan of Treatment Not on file Procedures Procedure Name Priority Date/Time Associated Diagnosis Comments COLONOSCOPY REPORT 12/20/2013 from Last 3 Months or Most Recently Relevant to Health Maintenance Results * COLONOSCOPY REPORT (12/20/2013) Anatomical Region Laterality Modality Other Narrative 12/20/2013 Ordered by an unspecified provider. us Historical Provider GI PROCEDURE ORDERABLES F inal Result from Last 3 Months or Most Recently Relevant to Health Maintenance Insurance [facility] CHOICE PLUS [facility] CHOICE PLUS Member Subscriber Plan / Payer (Ef fective 2018-Present) Name:Bert Goddard Relation to Subscriber:Self Name:Bert Goddard Payer ID:[id number] (NAIC) Type:[facility] HMO/PPO Address: [place] [id number] [place] [id number] Care Teams Knitted Cloth Examiner Relationship Specialty Start Date End Date Laith Seaed MD PCP - General 09/26/20
--- OUTSIDE RECORDS SUMMARY | 2024-08-26 15:41 | XMS_ITS | Clinical Summary ---
Author Organization [facility] Address [address] [place] [address] Care Team Providers Care Property Assistant Name Role Phone Laith Saeed MD Primary Care Provider [phone] Allergies No known active allergies Medications calcium phosphate-vitamin D3 250 mg calcium- 500 unit tablet,chewable TAKE 2 TABLETs TWICE DAILY. 02/14/20 14 Active multivitamin tabletIndications:Vit schrader Deficiency Prevention daily. 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 discussed today -start sleeping with eye mask -consider d/c ceiling fan use -RTC prn; sooner if symptoms worsen or persist Hypothyroidism, adult 04/17/2016 Papillary carcinoma of thyroid 02/11/2014 Hypoparathyroidism 10/26/2009 Encounters Date Type Department Care Team Description 08/25/2024 Orders Only [facility] Endocrinology Metabolism and Lipid [address] [facility] 5th [place] [address] [place] [address] Aashish Bowden RN Papillary carcinoma of thyroid (HCC) (Primary Dx); Hypothyroidism, adult 08/23/2024 Telephone [facility] Cardiology [address] [facility] 8th [place] [address] [place] [address] Laury Meier 06/28/2024 8:30 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 - (Added by TW Conv) Personal history of other di seases of the respiratory system History of allergic rhinitis - (Added by TW Conv) Personal history of other di seases of the digestive system History of esophageal reflux - (Added by TW Conv) Pseudophakia, both eyes Laxity of eyelid RUL/RLL Family History Medical History Relation Name Comments Colon cancer Father Adenocarcinoma Of The Large Intestine - father (age 53) and paternal grandfather (Added by TW Conv) Graves' disease Mother Colon cancer Other Adenocarcinoma Of The Large Intestine - father (age 53) and paternal grandfather (Added by TW Conv) Relation Name Status Comments Father Mother Other Social History Tobacco Use Types Packs/Day Years Used Date Smoking Tobacco: Never Smokeless Tobacco: Never Tobacco Cessation:Counseling Given: Not Answered Sex and Gender Information Value Date Recorded Sex Assigned at Not on file Legal Sex Male 3:09 AM 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 Gender Identity Male 09/08/2018 3:13 PM 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 Sexual Orientation Not on file Obstetrics History Last Filed Vital Signs Vital Sign Reading Time Taken Comments Blood Pressure 145/88 02/27/2024 9:06 AM CDT 1st reading 156/110 Pulse 81 02/27/2024 9:06 AM CDT Temperature 37 C (98.6 F) 10/08/2022 2:46 PM CDT Respiratory Rate 16 07/29/2021 7:06 PM 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 Oxygen Saturation 97% 07/29/2021 7:0 6 PM 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 Inhaled Oxygen Concentration - - Weight 91.8 kg (202 lb 6.4 oz) 02/27/2024 9:06 AM CDT Height 182.9 cm (6') 10/08/2022 2:46 PM CDT Body Mass Index 27.45 10/08/2022 2:46 PM CDT Plan of Treatment Health Maintenance Due Date Last Done Comments Depression Screening 1969 Hepatitis C Screening 1969 Prostate Cancer Screening-PSA 1969 DTaP/Tdap/Td Vaccine (1 - Tdap) 1980 Hepatitis B Screening 1987 Regular Well Visit/Exam 18-64 1987 Zoster Vaccine (1 of 2) 2019 Colon Cancer Screening-Colonoscopy 12/21/2023 12/20/2013 Influenza Vaccine (#1) 2024 9, 05/18/2018, 04/22/2016, Additional history exists Colon Cancer Screening-CT Colonography Discontinued 12/20/2013 Colon Cancer Screening-DNA Stool Discontinued 12/20/2013 Colon Cancer Screening-FIT Discontinued 12/20/2013 Colon Cancer Screening-Sigmoidoscopy Discontinued 12/20/2013 Pneumococcal vaccine <65 Aged Out No longer eligible based on patient's age to complete this topic Procedures Procedure Name Priority Date/Time Associated Diagnosis Comments COLONOSCOPY REPORT 12/20/2013 from Last 3 Months or Most Recently Relevant to Health Maintenance Results * COLONOSCOPY REPORT (12/20/2013) Anatomical Region Laterality Modality Other Narrative 12/20/2013 Ordered by an unspecified provider. us Historical Provider GI PROCEDURE ORDERABLES F inal Result from Last 3 Months or Most Recently Relevant to Health Maintenance Insurance [facility] PLUS [facility] PLUS [place] [id number] [facility] PLUS Care Teams Property Assistant Relationship Specialty Start Date End Date Laith Saeed MD PCP - General 09/26/20
[2024-08-26 20:26] LABS: Alanine Aminotransferase 25 U/L (6-50); Albumin Level 4.3 g/dL (3.5-5.1); Alkaline Phosphatase 75 U/L (38-126); Anion Gap 9 mmol/L (4-12); Aspartate Amino Transferase 24 U/L (17-59); Bilirubin,Total 0.5 mg/dL (0.2-1.3); Blood Urea Nitrogen 24 mg/dL (9-20); Calcium 7.7 mg/dL (8.4-10.2); Carbon Dioxide 33 mmol/L (22-30); Chloride 103 mmol/L (98-107); Estimated Glomerular Filt Rate > 60; Glucose 110 mg/dL (65-110); Potassium 3.8 mmol/L (3.4-5.0); Sodium 145 mmol/L (137-145)
[2024-08-26 20:52] LABS: Thyroid Stimulating Hormone 0.062 uIU/mL (0.465-4.680)
[2024-08-26 21:58] LABS: Hemoglobin A1C 6.4 % (<5.7)
== END 2024-08-26 15:37 | disposition home or self-care (01) ==
LOC: ANHGOSHLAB 15:37
PROVIDERS: PCP Family Medicine; Visit Provider Family Medicine
DX: C73 Malignant neoplasm of thyroid gland (principal); R73.03 Prediabetes; D16.9 Benign neoplasm of bone and articular cartilage, unspecified; E89.2 Postprocedural hypoparathyroidism
CPT/HCPCS: 36415; 80053; 83036; 84443